=== PATIENT | male | born 1975 ===

== ENCOUNTER 2020-07-06 17:58 | Outpatient (REF) | payer OTHER, SELFPAY | END 2020-07-06 17:59 | disposition home or self-care (01) | LOC: HO.LNP 17:58 | PROVIDERS: Internal Medicine; Visit Provider Nurse Practitioner Family | DX: J06.9 Acute upper respiratory infection, unspecified (principal); Z20.828 Contact with and (suspected) exposure to other viral communicable diseases | CPT/HCPCS: U0003 ==

== ENCOUNTER 2021-05-10 14:55 | Outpatient (REF) | payer OTHER, SELFPAY | END 2021-05-10 14:56 | disposition home or self-care (01) | LOC: HO.LAB 14:55 | PROVIDERS: Visit Provider Internal Medicine | DX: Z20.822 Contact with and (suspected) exposure to COVID-19 (principal) | CPT/HCPCS: C9803; U0003; U0005 ==

== ENCOUNTER 2022-06-27 08:55 | Outpatient (REF) | payer OTHER, SELFPAY ==
[2022-06-27 11:12] LABS: MANUAL DIFF FLAG NO
[2022-06-27 11:26] LABS: Basophils Percent Auto 0.7 % (0-2); Eosinophils Absolute Auto 0.1 X10*3/uL (0.0-0.4); Eosinophils Percent Auto 1.6 % (0-4); Hematocrit 48.6 % (42.0-52.0); Hemoglobin 15.6 g/dl (14.0-18.0); Imm Gran Abs Auto 0.02 X10*3/uL (0.00-0.03); Imm Gran Pct Auto 0.3 % (0.0-0.4); Lymphocytes Absolute Auto 2.1 X10*3/uL (1.2-4.9); Lymphocytes Percent Auto 34.3 % (20-40); Mean Corpuscular HGB Conc 32.1 g/dl (31.0-36.0); Mean Corpuscular Hemoglobin 27.4 pg (27.0-33.0); Mean Corpuscular Volume 85.4 fL (80.0-98.0); Mean Platelet Volume 11.3 fL (9.4-12.4); Monocytes Absolute Auto 0.4 X10*3/uL (0.1-1.2); Monocytes Percent Auto 5.7 % (2-11); Neutrophils Absolute Auto 3.5 x10*3/uL (2.0-8.3); Neutrophils Percent Auto 57.4 % (45-73); Platelet Count 280 X10*3/uL (160-400); Red Blood Count 5.69 X10*6/uL (4.60-5.80); Red Cell Distribution Width 12.7 % (11.0-16.0); White Blood Count 6.1 X10*3/uL (4.8-10.8)
[2022-06-27 11:32] LABS: Estimated Average Glucose 292 mg/dL; Hemoglobin A1c % 11.8 %
[2022-06-27 11:57] LABS: Alanine Aminotransferase 31 U/L (0-40); Albumin Level 4.3 g/dL (3.5-5.0); Alkaline Phosphatase 79 U/L (39-117); Anion Gap 12 (12-20); Aspartate Amino Transferase 14 U/L (5-37); Bilirubin Total 0.5 mg/dL (0.0-1.0); Blood Urea Nitrogen 20 mg/dL (9-16); Calcium 9.9 mg/dL (8.4-10.2); Carbon Dioxide 27 mmol/L (22-29); Chloride 104 mmol/L (96-108); Cholesterol 191 mg/dL; Estimated Glomerular Filt Rate > 60; Glucose Fasting 337 mg/dL (60-99); HDL Cholesterol 31 mg/dL; Potassium 4.9 mmol/L (3.3-5.1); Sodium 138 mmol/L (135-145); TSH reflex Free T4 0.99 uIU/mL (0.32-4.0); Total Protein 7.8 g/dL (6.5-8.0); Triglycerides 401 mg/dL
[2022-06-28 22:43] LABS: Follicle Stimulating Hormone 4.9 mIU/mL (1.6-8.0); Lutenizing Hormone 4.4 mIU/mL (1.5-9.3)
[2022-07-04 13:59] LABS: Testosterone, Free 132.3 pg/mL (35.0-155.0); Testosterone, Total 407 ng/dL (250-1100)
== END 2022-06-27 08:56 | disposition home or self-care (01) ==
LOC: HO.HMGCLDS 08:55
PROVIDERS: PCP Nurse Practitioner Family; Visit Provider Nurse Practitioner Family
DX: Z00.00 Encounter for general adult medical examination without abnormal findings (principal); E11.9 Type 2 diabetes mellitus without complications; N52.9 Male erectile dysfunction, unspecified; R68.82 Decreased libido
CPT/HCPCS: 36415; 80053; 80061; 83001; 83002; 83036; 84402; 84403; 84443; 85025

== ENCOUNTER → 2022-08-27 08:13 | Outpatient (BNVA) | payer OTHER, SELFPAY | PROVIDERS: PCP Nurse Practitioner Family; Visit Provider Physician Assistant | DX: Z13.89 Encounter for screening for other disorder (principal) ==

== ENCOUNTER 2022-12-26 11:51 | Day surgery (SDC) | payer OTHER, SELFPAY ==
--- NOTE | 2022-12-25 12:13 | HO.ANESPROP2 ---
HPI - Anesthesia Eval Consult details Narrative: 47yo M for Colonoscopy PMFSH Active Problems Active Problems: All Active Problems (Updated 10/16/22 @ 10:51 by Aura Morales MD) Thumb laceration (Acute) Dyslipidemia (Acute) Dermatitis (Acute) Erectile dysfunction (Acute) Low libido (Acute) Screening for colon cancer (Acute) Right otitis externa (Acute) Strain of left trapezius muscle (Acute) Irregular heart rhythm (Acute) Balanitis (Acute) Coccyx pain (Acute) Diabetes (Acute) Physical exam (Acute) Thoracic myofascial strain (Acute) Upper respiratory infection (Acute) Surgical History Surgical History History of appendectomy Hx of cholecystectomy Social History Social History Housing: House Patient Tobacco Use Status: Never used Tobacco e-Cigarette/Vaping Use: Never Used Second Hand Smoke Exposure: No service: No Current occupational status: employed Current occupation: [employer] Current occupational exposures/hazards: No Cognitive needs: No Hearing needs: No Vision needs: No Meds Allergies Allergy/AdvReac Type Severity Reaction Status Date / Time No Known Allergies Allergy Verified 10/16/22 09:57 Exam Exam Date and Time: December 25, 2022 1213 Assessment and Plan Assessment Anesthesia Assessment: Chart Reviewed
--- NOTE | 2022-12-26 12:26 | MHC.SHP ---
Pre-Procedural Eval Section A Date of Service: 12/26/22 Section B Chief Complaint: screening Relevant Family History (Specify if Yes): No Relevant Social History: None Present Medications: see Short Stay Collaborative assessment Medical History: Significant History (HTN, DM, cholesterol ) History of Previous Operations: Relevant previous surgery/procedure and date(s) (History of appendectomy Hx of cholecystectomy) Allergies: Allergies Allergy/AdvReac Type Severity Reaction Status Date / Time No Known Allergies Allergy Verified 10/16/22 09:57 Review of Systems Sugical H&P ROS: Negative: Constitution, Cardiovascular, Respiratory, Neurological, Psychiatric, Hem-Onc, Allergic/Immunologic, Gastrointestinal, Genitourinary, Musculoskeletal, Integumentary, Endocrine and Eyes/Ears/Nose/Throat Exam Surgical H&P Exam: Normal: HEENT, Normal: Heart, Normal: Lungs, Normal: Extremities, Normal: Abdomen, Normal: Skin and Normal: Neurological Plan Diagnosis/Plan: Unchanged I have reviewed the history and physical and performed a pertinent physical examination on my patient. No changes have occurred unless specified. Time Spent With Patient Time: Total time managing care of this patient today ____ minutes.
--- NOTE | 2022-12-26 12:27 | W.PM.OPN ---
Operative Note Operative Note Date of Service: 12/26/22 Narrative: Operative Information Procedure Description: Colonoscopy Indication: screening Anesthesia: MAC COLONOSCOPY Instrument: Olympus variable stiffness pediatric scope 190L Colonoscopy Monitoring: Vital signs and clinical assessment, continuous EKG monitoring, Pulse oximetry, Carbon Dioxide monitoring and blood pressure monitoring were done throughout the procedure. Colon withdrawal time was 4 minutes. Procedure: The patient was placed in the left lateral decubitis position and pre-procedure medications were administered. After a digital rectal examination of the ano-rectum, the video colonoscope was inserted into the rectum and advanced through the colon to the cecum/TI. The colonoscope was slowly withdrawn in a retrograde panoramic fashion and the colon mucosa was carefully examined including a retroflexed view of the rectum. Findings and interventions are described below. Procedure Difficulty: easy Findings: Terminal Ileum-unable to intubate Cecum: unabel to see Ascending Colon: normal Transverse Colon -normal Descending Colon:normal Sigmoid Colon: normal Rectum: Retroflexion with small internal hemorrhoids, grade I Anorectum - normal Colon preparation: [place] Bowel Preparation Scale Right colon; 0-1 Transverse colon: 1-2 Left colon; 2 (0 = Unprepared colon segment with mucosa not seen due to solid stool that cannot be cleared. 1 = Portion of mucosa of the colon segment seen, but other areas of the colon segment not well seen due to staining, residual stool and/or opaque liquid. 2 = Minor amount of residual staining, small fragments of stool and/or opaque liquid, but mucosa of colon segment seen well. 3 = Entire mucosa of colon segment seen well with no residual staining, small fragments of stool or opaque liquid) Impression and Post Procedure Diagnosis: poor prep internal hemorrhoids Plan: High fiber diet leaflet Avoid straining at stool, epsom salts and sitz bath, anusol supps or cream Repeat Colonoscopy in 6-12 months with prep compliance or earlier if clinically indicated Above findings were reviewed with the patient and relevant handouts were provided if indicated.
[2022-12-26 12:28] VITALS: BMI 31.9
--- NOTE | 2022-12-26 12:29 | P.CONAN_ITS ---
[facility] Active Problems Active Problems: All Active Problems (Updated 10/16/22 @ 10:51 by Aura Morales MD) Thumb laceration (Acute) Dyslipidemia (Acute) Dermatitis (Acute) Erectile dysfunction (Acute) Low libido (Acute) Screening for colon cancer (Acute) Right otitis externa (Acute) Strain of left trapezius muscle (Acute) Irregular heart rhythm (Acute) Balanitis (Acute) Coccyx pain (Acute) Diabetes (Acute) Physical exam (Acute) Thoracic myofascial strain (Acute) Upper respiratory infection (Acute) Past Medical History Functional capacity: independent ambulation Surgical History Surgical History History of appendectomy Hx of cholecystectomy Social History Social History Housing: House Patient Tobacco Use Status: Never used Tobacco e-Cigarette/Vaping Use: Never Used Second Hand Smoke Exposure: No Advance Directives: No Advance Directives Information Provided: Yes service: No Current occupational status: employed Current occupation: [employer] Current occupational exposures/hazards: No Cognitive needs: No Hearing needs: No Vision needs: No Meds Allergies Allergy/AdvReac Type Severity Reaction Status Date / Time No Known Allergies Allergy Verified 10/16/22 09:57 Active Medications: Current Medications Lactated Ringer's (Lr) 1,000 mls @ 100 mls/hr IVCONT .Q10H LUANA Exam Exam Date and Time: December 26, 2022 1229 Airway Mallampati Class: IV TM Dist: >3cm Neck ROM: Full Heart: RRR Lungs: CTA Assessment and Plan Final Anesthetic Review ASA Class: III Final Preanesthetic Review: Meds/Allgs Chart Reviewed, Consent Obtained/Reviewed and Anes Risks/Benef Reviewed Patient Risk: Intermediate Procedure Risk: Low Anesthetic Plan Anesthetic Plan: MAC: Disposition: Standard PACU
[2022-12-26] MEDS: Lactated Ringers 1,000 ML 100 ML IVCONT (12:41)
[2022-12-26 12:50] LABS: Glucose, Whole Blood 86 mg/dL (60-115)
[2022-12-26 12:51] VITALS: BP 115/66; PULSE 97; RESP 18; TEMP 36.8; O2SAT 99
[2022-12-26 14:00] VITALS: BP 108/61; PULSE 87; RESP 16; TEMP 36.3; O2SAT 98
[2022-12-26 14:15] VITALS: BP 117/71; PULSE 83; RESP 17; TEMP 36.9; O2SAT 99
== END 2022-12-26 15:10 | disposition home or self-care (01) ==
PROVIDERS: PCP Nurse Practitioner Family; Visit Provider Internal Medicine Gastroenterology
PROC: 0DJD8ZZ Inspection of Lower Intestinal Tract, Via Natural or Artificial Opening Endoscopic (ICD-10-PCS; CPT 45378; principal; 2022-12-26 13:40)
DX: Z12.11 Encounter for screening for malignant neoplasm of colon (principal); K64.0 First degree hemorrhoids; I10 Essential (primary) hypertension; E78.00 Pure hypercholesterolemia, unspecified; E11.9 Type 2 diabetes mellitus without complications; Z79.84 Long term (current) use of oral hypoglycemic drugs; Z79.899 Other long term (current) drug therapy; Z90.49 Acquired absence of other specified parts of digestive tract
CPT/HCPCS: 45378; 82947

== ENCOUNTER 2023-02-10 07:43 | Outpatient (REF) | payer OTHER, SELFPAY ==
[2023-02-10 11:24] LABS: MANUAL DIFF FLAG NO
[2023-02-10 11:51] LABS: Basophils Percent Auto 0.8 % (0-2); Eosinophils Absolute Auto 0.2 X10*3/uL (0.0-0.4); Eosinophils Percent Auto 3.3 % (0-4); Hemoglobin 14.9 g/dl (14.0-18.0); Imm Gran Abs Auto 0.01 X10*3/uL (0.00-0.03); Imm Gran Pct Auto 0.2 % (0.0-0.4); Lymphocytes Absolute Auto 1.9 X10*3/uL (1.2-4.9); Lymphocytes Percent Auto 36.7 % (20-40); Mean Corpuscular Hemoglobin 26.2 pg (27.0-33.0); Mean Corpuscular Volume 84.5 fL (80.0-98.0); Mean Platelet Volume 10.7 fL (9.4-12.4); Monocytes Absolute Auto 0.4 X10*3/uL (0.1-1.2); Monocytes Percent Auto 7.2 % (2-11); Neutrophils Absolute Auto 2.7 x10*3/uL (2.0-8.3); Neutrophils Percent Auto 51.8 % (45-73); Platelet Count 269 X10*3/uL (160-400); Red Blood Count 5.68 X10*6/uL (4.60-5.80); Red Cell Distribution Width 13.5 % (11.0-16.0); White Blood Count 5.2 X10*3/uL (4.8-10.8)
[2023-02-10 12:10] LABS: Estimated Average Glucose 151 mg/dL; Hemoglobin A1c % 6.9 %
[2023-02-10 12:27] LABS: Alanine Aminotransferase 44 U/L (0-40); Albumin Level 3.9 g/dL (3.5-5.0); Alkaline Phosphatase 51 U/L (39-117); Anion Gap 13 (12-20); Aspartate Amino Transferase 17 U/L (5-37); Bilirubin Total 0.5 mg/dL (0.0-1.0); Blood Urea Nitrogen 13 mg/dL (9-16); Calcium 8.5 mg/dL (8.4-10.2); Carbon Dioxide 24 mmol/L (22-29); Chloride 105 mmol/L (96-108); Cholesterol 139 mg/dL; Estimated Glomerular Filt Rate > 60; Glucose Fasting 146 mg/dL (60-99); Glucose Random 146 mg/dL (60-115); HDL Cholesterol 36 mg/dL; LDL Cholesterol Calculated 81 mg/dl; Potassium 3.9 mmol/L (3.3-5.1); Sodium 138 mmol/L (135-145); Total Protein 6.9 g/dL (6.5-8.0); Triglycerides 112 mg/dL
[2023-02-10 12:49] LABS: TSH reflex Free T4 0.71 uIU/mL (0.32-4.0)
[2023-02-10 14:50] LABS: Appearance Urine Clear; Color Urine Yellow; Glucose Urine UA 500 mg/dL (Negative); Leukocyte Esterase Urine Negative (Negative); Nitrite Urine Negative (Negative); Specific Gravity - Urine 1.025 (1.005-1.025); Urine Blood Negative (Negative); Urine Ketones Negative (Negative); Urine Protein Negative (Neg-Trace)
[2023-02-10 16:03] LABS: Creatinine Urine 176.11 mg/dL; Microalbum/Creatinine Ratio Ur 3.4 ug/mg cr
== END 2023-02-10 07:44 | disposition home or self-care (01) ==
LOC: HO.HMGCLDS 07:43
PROVIDERS: PCP Nurse Practitioner Family; Visit Provider Nurse Practitioner Family
DX: E11.9 Type 2 diabetes mellitus without complications (principal); E78.5 Hyperlipidemia, unspecified
CPT/HCPCS: 36415; 80053; 80061; 81003; 82043; 83036; 84443; 85025

== ENCOUNTER 2023-02-11 10:12 | Outpatient (AMB) | payer OTHER, SELFPAY ==
[2023-02-11 10:24] VITALS: BP 120/76; PULSE 84; O2SAT 98; BMI 32.0
--- NOTE | 2023-02-11 10:24 | MHC.PC.OV ---
Vital Signs 02/11/23 10:24 Height 5 ft 10 in Weight 223 lb 4 oz BMI 32.0 BP 120/76 Blood Pressure Location Lt brachial Position Sitting Pulse 84 Pulse Source Pulse Oximeter Pulse Oximetry (%) 98 Oxygen Delivery Method Room Air Intake Visit Reasons: Diabetes, labs Allergies No Known Allergies Allergy (Verified 02/11/23 10:26) Medication List - Last Reconciled 02/11/23 by JUAN Rock bisacodyl (Dulcolax (bisacodyl)) 10 mg (2 x 5 mg) PO ONCE 1 day clotrimazole-betamethasone 1-0.05 % 1 appl topical BID 2 weeks lisinopril 2.5 mg PO DAILY metformin 1,000 mg PO BID polyethylene glycol 3350 (Miralax) 238 grams PO ONCE 1 day rosuvastatin (Crestor) 10 mg PO BEDTIME 30 days tadalafil (Cialis) 5 mg PO DAILY PRN 10 days tirzepatide 7.5 mg (0.5 mL) subcut QWEEK 4 weeks Tobacco use date assessed: 02/11/23 Dental Screening Dental Screen Date: 02/11/23 Did you have a dental visit in the last 12 months?: No Did you have a dental problem in the last 6 months where you did not have access to dental care?: No Was dental information given to patient?: Patient has dentist HPI Diabetes, labs HPI Details Pt is a diabetic, on an RAMONITA and a statin. Last A1c was 6.9, microalbumin is up to date. Denies polyuria, polydipsia, does report neuropathy. Pt denies any signs and symptoms of hypoglycemia and does know how to correct it. Eye exam is up to date. Liver enzymes were elevated. Hepatitis screen and US have been ordered. [facility] Medical History (Updated 02/10/23 @ 12:38 by JUAN Rock) Diabetes mellitus Erectile dysfunction Hyperlipidemia Hypertension Surgical History History of appendectomy Hx of cholecystectomy Social History Housing: House Patient Tobacco Use Status: Never used Tobacco e-Cigarette/Vaping Use: Never Used Second Hand Smoke Exposure: No service: No Current occupational status: employed Current occupation: [employer] Current occupational exposures/hazards: No Cognitive needs: No Hearing needs: No Vision needs: No Questionnaire Thrive Questionnaire Date Thrive assessed: 06/27/22 MAYNOR-7 AMB Questionnaire MAYNOR-7 Date MAYNOR - 7 assessed: 06/27/22 Source: Developed by Drs. Jason Vergara, Qi Ferguson, Yared Solis and colleagues, with an educational charlotte from [employer]. Review of Systems Const Reports as per HPI Physical exam (Primary Care) Vital Signs: Last Vital Signs Pulse 84 02/11/23 10:24 BP 120/76 02/11/23 10:24 Pulse Ox 98 02/11/23 10:24 Oxygen Delivery Method Room Air 02/11/23 10:24 BMI result Body Mass Index 32.0 Tobacco/Smoking Status: Tobacco use Status Tobacco use date assessed 02/11/23 02/11/23 10:31 Patient Tobacco Use Status Never used Tobacco 02/11/23 10:27 e-Cigarette/Vaping Use Never Used 02/11/23 10:27 Thrive Assessment: Date of Thrive Assessment Date Thrive assessed 06/27/22 02/11/23 10:27 Const General: cooperative Nutritional Appearance: obese Orientation/consciousness: patient oriented x3 Resp Effort & Inspection: normal respiratory effort Auscultation: clear to auscultation bilaterally Cardio Rate: regular rate Rhythm: regular rhythm Heart sounds: S1 normal heart sound present and S2 normal heart sound present Neuro General: patient oriented x3 Extrem Other: bilat feet: + sensation with use of monofilament, feet intact Psych Appearance: grossly normal Mental Status: mental status grossly normal Speech and movement: Normal speech and movement present Affect: normal affect Attitude: cooperative Thought process: Normal thought process present Thought content: Normal thought content present Insight: Good insight present (Psych) Judgement: Good judgement present (Psych) Assessment and Plan Assessment & Plan (1) Elevated liver enzymes: Code(s): R74.8 - Abnormal levels of other serum enzymes (2) Diabetes: Code(s): E11.9 - Type 2 diabetes mellitus without complications Plan The patient agreed to the use of a certified medical technician assistant for this encounter. Scribed for JUAN Barron by Shyla Gold certified medical technician assistant, on 02/11/2023 at 10:35 EST. Medications: New tadalafil (Cialis) administer approximately 30min before sexual activity; do not use more than 1 dose per 24hrs 5 mg PO DAILY PRN 10 tabs 1RF sexual activity 10 days Refilled tirzepatide 7.5 mg (0.5 mL) subcut QWEEK 4 weeks 2 mL 0RF tirzepatide 7.5 mg (0.5 mL) subcut QWEEK 2 mL 0RF 4 weeks metformin 1,000 mg PO BID 180 tabs 0RF Coding Level of Care Code Est Pt Level 3 (70032) Diagnoses Elevated liver enzymes R74.8 Diabetes E11.9
== END 2023-02-11 10:59 | disposition home or self-care (01) ==
PROVIDERS: PCP Nurse Practitioner Family; Visit Provider Nurse Practitioner Family
DX: R74.8 Abnormal levels of other serum enzymes (principal); E11.9 Type 2 diabetes mellitus without complications
CPT/HCPCS: 99213

== ENCOUNTER 2023-02-27 09:02 | Outpatient (REF) | payer OTHER, SELFPAY ==
--- NOTE | ~2023-02-27 | US_ITS ---
EXAMINATION: US ABDOMEN COMPLETE CLINICAL INFORMATION: Abnormal levels of other serum enzymes. COMPARISON: None available. TECHNIQUE: Real-time imaging of the abdominal viscera. FINDINGS: PANCREAS: Normal. ABDOMINAL AORTA: The proximal, mid, and distal segments are normal in caliber. INFERIOR VENA CAVA: Visualized portions are normal. LIVER: The liver is normal in size. The liver contour is normal. There is diffuse increased liver parenchymal echogenicity. No focal hepatic lesion. There is no intrahepatic biliary duct dilatation seen. GALLBLADDER: Surgically absent. COMMON BILE DUCT: Normal in caliber measuring 0.32 cm in diameter. RIGHT KIDNEY: Normal. No hydronephrosis. No renal calculi or focal parenchymal lesions. The kidney measures 11.8 cm in maximum dimension. LEFT KIDNEY: Normal. No hydronephrosis. No renal calculi or focal parenchymal lesions. The kidney measures 12.4 cm in maximum dimension. SPLEEN: Normal. The spleen measures 9.5 cm in maximum dimension. FREE FLUID: None. US/US abdomen complete IMPRESSION: There is generalized increase in hepatic echotexture, consistent with fatty infiltration or hepatocellular disease. Please correlate clinically. No focal hepatic mass or intrahepatic biliary dilatation is seen.
[2023-02-27 12:15] LABS: HBS Num1 7.36 mIU/mL (0-7.99); HBc Num1 0.07 S/CO (0.00-0.79); HBsAGNum1 0.37 S/CO (0.00-0.99); Hepatitis A Antibody IgM 0.22 Index (0-0.79); Hepatitis B Core Antibody Nonreactive (Nonreactive); Hepatitis B Surface Antigen Negative (Negative); ~HepC Num1 0.06 S/CO (0.00-0.79); ~Hepatitis A Antibody IgM Nonreactive (Nonreactive); ~Hepatitis B Surface Antibody NONREACTIVE (Nonreactive); ~Hepatitis C Antibody Nonreactive (Nonreactive)
== END 2023-02-27 09:03 | disposition home or self-care (01) ==
LOC: HO.HMGCX 09:02
PROVIDERS: PCP Nurse Practitioner Family; Visit Provider Nurse Practitioner Family
DX: R74.8 Abnormal levels of other serum enzymes (principal)
CPT/HCPCS: 36415; 76700; 86704; 86706; 86709; 86803; 87340

== ENCOUNTER 2023-07-15 07:59 | Outpatient (AMB) | payer OTHER, SELFPAY ==
--- NOTE | 2023-07-15 08:09 | A.OFFPC_ITS ---
Vital Signs 07/15/23 08:11 Height 5 ft 10 in Weight 228 lb BMI 32.7 BP 118/80 Blood Pressure Location Rt brachial Position Sitting Pulse 92 Pulse Source Pulse Oximeter Pulse Oximetry (%) 99 Oxygen Delivery Method Room Air Intake Visit Reasons: Annual PE Intake Note: Patient here for physical exam. last colonoscopy: 2022 at [facility] Allergies No Known Allergies Allergy (Verified 07/15/23 08:22) Medication List - Last Reconciled 07/15/23 by JUAN Rock bisacodyl (Dulcolax (bisacodyl)) 10 mg (2 x 5 mg) PO ONCE 1 day clotrimazole-betamethasone 1-0.05 % 1 appl topical BID 2 weeks ibuprofen 800 mg PO Q8H lisinopril 2.5 mg PO DAILY metformin 1,000 mg PO BID polyethylene glycol 3350 (Miralax) 238 grams PO ONCE 1 day rosuvastatin (Crestor) 10 mg PO BEDTIME 30 days tadalafil (Cialis) 5 mg PO DAILY PRN 10 days tirzepatide 10 mg (0.5 mL) subcut QWEEK 4 weeks Tobacco use date assessed: 07/15/23 Dental Screening Dental Screen Date: 07/15/23 Did you have a dental visit in the last 12 months?: No Did you have a dental problem in the last 6 months where you did not have access to dental care?: No Was dental information given to patient?: Patient has dentist HPI Annual PE HPI Details Pt is here for a PE. Will order labs. Due for colon screen in December, will place referral. Pt is a diabetic, on an RAMONITA and a statin. A1C in office today is 7.8. Microalbumin is up to date. Denies polyuria, polydipsia, does report neuropathy. Pt denies any signs and symptoms of hypoglycemia and does know how to correct it. Pt reports that his blood sugar has been in the low 100s. Will increase mounjaro from 10mg to 15mg due to A1C. Eye exam is up to date. [facility] Medical History Fatty liver Erectile dysfunction Hyperlipidemia Diabetes mellitus Hypertension Surgical History History of appendectomy Hx of cholecystectomy Social History Housing: House Patient Tobacco Use Status: Never used Tobacco e-Cigarette/Vaping Use: Never Used Second Hand Smoke Exposure: No service: No Current occupational status: employed Current occupation: [employer] Current occupational exposures/hazards: No Cognitive needs: No Hearing needs: No Vision needs: Yes Questionnaire PHQ-9 Over the last 2 weeks, how often have you been bothered by any of the following problems? 65071 - PHQ-9 Billing: Patient declined-do not bill Source: Developed by Drs. Jason Vergara, Qi Ferguson, Yared Solis and colleagues, with an educational charlotte from [employer]. Thrive Questionnaire Date Thrive assessed: 07/15/23 What is your living situation today?: I choose not to answer this question Within the past 12 months, did the food you bought not last and you didn't have the money to get more?: I choose not to answer this question Within the past 12 months, did you worry whether your food would run out before you got money to buy more?: I choose not to answer this question Do you have trouble paying for medicines?: I choose not to answer this question Do you have trouble getting transportation to medical appointments?: I choose not to answer this question Do you have trouble paying your heating and electricity bill?: I choose not to answer this question Do you have trouble taking care of your child, family member or friend?: I choose not to answer this question Do you have trouble with day-to-day activities such as bathing, preparing meals, shopping, managing finances, etc.?: I choose not to answer this question Are you currently unemployed and looking for a job?: I choose not to answer this question Are you interested in more education?: I choose not to answer this question Currently or been in a relationship where the following occur: I choose not to answer this question AUDIT C Alcohol Use Questionnaire (AUDIT-C) 1. How often do you have a drink containing alcohol?: Monthly or less 2. How many drinks containing alcohol do you have on a typical day when you are drinking?: 1 or 2 3. How often do you have six or more drinks on one occasion?: Never Total Score: 1 Score Reviewed/Action Taken: No MAYNOR-7 AMB Questionnaire MAYNOR-7 Date MAYNOR - 7 assessed: 07/15/23 Source: Developed by Drs. Jason Vergara, Qi Ferguson, Yared Solis and colleagues, with an educational charlotte from [employer]. MAYNOR-7 Assessment Billing MAYNOR-7 Assessment Tool: pt declined-do not bill Review of Systems Const Denies chills and Denies fever(s) Eyes Denies blurry vision ENT Denies vertigo, Denies dizziness and Denies sore throat Card Denies chest pain at rest, Denies chest pain with activity, Denies diaphoresis, Denies dyspnea and Denies dyspnea on exertion Resp Denies cough, Denies dyspnea, Denies dyspnea on exertion and Denies wheezing GI Denies abdominal pain, Denies melena, Denies hematochezia, Denies constipation, Denies diarrhea and Denies loose stools Denies hematuria Musc Denies numbness and Denies tingling Skin/Breast Denies lesions Neuro Denies vertigo, Denies dizziness, Denies numbness and Denies tingling Psych Denies anxiety, Denies depression, Denies homicidal ideation, Denies suicidal i deation and Denies other (substance abuse) Aller/Immun Denies wheezing Physical exam (Primary Care) Vital Signs: Last Vital Signs Pulse 92 07/15/23 08:11 BP 118/80 07/15/23 08:11 Pulse Ox 99 07/15/23 08:11 Oxygen Delivery Method Room Air 07/15/23 08:11 BMI result Body Mass Index 32.7 Tobacco/Smoking Status: Tobacco use Status Tobacco use date assessed 07/15/23 07/15/23 08:17 Patient Tobacco Use Status Never used Tobacco 07/15/23 08:10 e-Cigarette/Vaping Use Never Used 07/15/23 08:10 Thrive Assessment: Date of Thrive Assessment Date Thrive assessed 07/15/23 07/15/23 08:20 Currently or been in a relationship where the following occur: I choose not to answer this question Const General: cooperative Nutritional Appearance: obese Orientation/consciousness: patient oriented x3 HENMT Head: Yes normal to inspection, Yes normocephalic and Yes atraumatic Ears: TM's normal bilaterally Eyes General: appearance normal, both eyes and all related structures Alignment and Position: alignment normal and position normal Neck Neck: Yes normal visual inspection and Yes no lymphadenopathy Thyroid: Thyroid normal Resp Effort & Inspection: normal respiratory effort Auscultation: clear to auscultation bilaterally Cardio Rate: regular rate Rhythm: regular rhythm Heart sounds: S1 normal heart sound present, S2 normal heart sound present and no murmurs GI Palpation (GI): Soft to palpation and nontender Auscultation: normal bowel sounds Male General Exam: Yes normal external exam Penis: normal penis Scrotum: scrotum normal, testes descended bilaterally and no inguinal hernias Testes: no testicular mass Skin Rashes: no rashes Neuro General: patient oriented x3, moves all extremities, no focal motor deficits and deep tendon reflexes 2+ bilaterally Romberg Test: Negative Extrem Other: bilat feet: + sensation with use of monofilament, feet intact Psych Appearance: grossly normal Mental Status: mental status grossly normal Speech and movement: Normal speech and movement present Affect: normal affect Attitude: cooperative Thought process: Normal thought process present Thought content: Normal thought content present Insight: Good insight present (Psych) Judgement: Good judgement present (Psych) Results AMB Hemoglobin A1c AMB Hemoglobin A1c 7.8 % Last Edit by ROB Harrison on 07/15/23 08 :34 Assessment and Plan Assessment & Plan (1) Physical exam: Code(s): Z00.00 - Encounter for general adult medical examination without abnormal findings Plan: Labs ordered (2) Screening for colon cancer: Comment: Index screening colonoscopy MiraLax Gatorade split prep Medications just Code(s): Z12.11 - Encounter for screening for malignant neoplasm of colon Plan: Referred to GI (3) Diabetes: Code(s): E11.9 - Type 2 diabetes mellitus without complications Plan: increased GLP-1 agonist Plan The patient agreed to the use of a medical billing assistant for this encounter. Scribed for JUAN Barron by Shyla Gold medical billing assistant, on 07/15/2023 at 08:20 EST. Orders: Orders Complete Blood Count Auto Diff Today Z00.00 - Encounter for general adult medical examination without abnormal findings Comprehensive [place]. Panel Fast Today Z00.00 - Encounter for general adult medical examination without abnormal findings TSH reflex Free T4 Today Z00.00 - Encounter for general adult medical examination without abnormal findings UA CC w/rflx Micro + Cult Today Z00.00 - Encounter for general adult medical examination without abnormal findings Lipid Panel Today Z00.00 - Encounter for general adult medical examination without abnormal findings AMB Hemoglobin A1c Today E11.9 - Type 2 diabetes mellitus without complications Referrals Gastroenterology Referral Z12.11 - Encounter for screening for malignant neoplasm of colon Medications: Changed From tirzepatide 10 mg (0.5 mL) subcut QWEEK 4 weeks 2 mL 4RF E11.9 - Type 2 diabetes mellitus without complications To tirzepatide 15 mg (0.5 mL) subcut QWEEK 4 weeks 2 mL 4RF E11.9 - Type 2 diabetes mellitus without complications Coding Level of Care Code Est Pt Prev Care 40-64y(09601) Diagnoses Physical exam Z00.00 Screening for colon cancer Z12.11 Diabetes E11.9
[2023-07-15 08:11] VITALS: BP 118/80; PULSE 92; O2SAT 99; BMI 32.7
== END 2023-07-15 09:44 | disposition home or self-care (01) ==
PROVIDERS: PCP Nurse Practitioner Family; Visit Provider Nurse Practitioner Family
DX: Z00.00 Encounter for general adult medical examination without abnormal findings (principal); Z12.11 Encounter for screening for malignant neoplasm of colon; E11.9 Type 2 diabetes mellitus without complications
CPT/HCPCS: 83036; 99396

== ENCOUNTER 2023-10-28 07:45 | Outpatient (REF) | payer OTHER, SELFPAY ==
[2023-10-28 10:26] LABS: MANUAL DIFF FLAG NO
[2023-10-28 10:40] LABS: Appearance Urine Clear; Color Urine Yellow; Glucose Urine UA 250 mg/dL (Negative); Leukocyte Esterase Urine Negative (Negative); Nitrite Urine Negative (Negative); PH 5.5 (5.0-9.0); Specific Gravity - Urine >= 1.030 (1.005-1.025); Urine Blood Negative (Negative); Urine Ketones Negative (Negative); Urine Protein Negative (Neg-Trace)
[2023-10-28 10:45] LABS: Basophils Percent Auto 0.7 % (0-2); Eosinophils Absolute Auto 0.1 X10*3/uL (0.0-0.4); Eosinophils Percent Auto 2.6 % (0-4); Hematocrit 48.4 % (42.0-52.0); Hemoglobin 15.5 g/dl (14.0-18.0); Imm Gran Abs Auto 0.01 X10*3/uL (0.00-0.03); Imm Gran Pct Auto 0.2 % (0.0-0.4); Lymphocytes Percent Auto 36.2 % (20-40); Mean Corpuscular Volume 84.3 fL (80.0-98.0); Monocytes Absolute Auto 0.4 X10*3/uL (0.1-1.2); Monocytes Percent Auto 6.9 % (2-11); Neutrophils Absolute Auto 2.9 x10*3/uL (2.0-8.3); Neutrophils Percent Auto 53.4 % (45-73); Platelet Count 259 X10*3/uL (160-400); Red Blood Count 5.74 X10*6/uL (4.60-5.80); Red Cell Distribution Width 13.3 % (11.0-16.0); White Blood Count 5.4 X10*3/uL (4.8-10.8)
[2023-10-28 11:55] LABS: Alanine Aminotransferase 47 U/L (0-40); Albumin Level 4.2 g/dL (3.5-5.0); Alkaline Phosphatase 72 U/L (39-117); Anion Gap 9 (12-20); Aspartate Amino Transferase 20 U/L (5-37); Bilirubin Total 0.6 mg/dL (0.0-1.0); Blood Urea Nitrogen 18 mg/dL (9-16); Calcium 9.1 mg/dL (8.4-10.2); Carbon Dioxide 27 mmol/L (22-29); Chloride 106 mmol/L (96-108); Cholesterol 152 mg/dL (<200); Estimated Glomerular Filt Rate > 60; Glucose Fasting 197 mg/dL (60-99); HDL Cholesterol 33 mg/dL (>40); LDL Cholesterol Calculated 85 mg/dL (<100); Potassium 4.2 mmol/L (3.3-5.1); Sodium 138 mmol/L (135-145); Total Protein 7.6 g/dL (6.5-8.0); Triglycerides 174 mg/dL (<150)
[2023-10-28 12:13] LABS: TSH reflex Free T4 1.14 uIU/mL (0.32-4.0)
== END 2023-10-28 07:46 | disposition home or self-care (01) ==
LOC: HO.HMGCLDS 07:45
PROVIDERS: PCP Nurse Practitioner Family; Visit Provider Nurse Practitioner Family
DX: Z00.00 Encounter for general adult medical examination without abnormal findings (principal); Z13.6 Encounter for screening for cardiovascular disorders
CPT/HCPCS: 36415; 80053; 80061; 81003; 84443; 85025

== ENCOUNTER 2023-10-29 09:29 | Outpatient (AMB) | payer OTHER, SELFPAY ==
--- NOTE | 2023-10-29 09:37 | A.OFFPC_ITS ---
Vital Signs 10/29/23 09:42 Height 5 ft 10 in Weight 224 lb BMI 32.1 BP 124/80 Blood Pressure Location Rt brachial Position Sitting Pulse 85 Pulse Source Pulse Oximeter Pulse Oximetry (%) 95 Oxygen Delivery Method Room Air Intake Visit Reasons: 3 month follow up Intake Note: Patient here for diabetes f/u. Allergies No Known Allergies Allergy (Verified 10/29/23 09:49) Medication List - Last Reconciled 10/29/23 by JUAN Rock bisacodyl (Dulcolax (bisacodyl)) 10 mg (2 x 5 mg) PO ONCE 1 day clotrimazole-betamethasone 1-0.05 % 1 appl topical BID 2 weeks ibuprofen 800 mg PO Q8H lisinopril 2.5 mg PO DAILY metformin 1,000 mg PO BID polyethylene glycol 3350 (Miralax) 238 grams PO ONCE 1 day rosuvastatin (Crestor) 10 mg PO BEDTIME 30 days tadalafil (Cialis) 5 mg PO DAILY PRN 10 days tirzepatide (Mounjaro) 10 mg subcut QWEEK tirzepatide 15 mg (0.5 mL) subcut QWEEK 4 weeks Tobacco use date assessed: 07/15/23 Dental Screening Dental Screen Date: 07/15/23 HPI 3 month follow up HPI Details Pt is a diabetic, on an RAMONITA and a statin. A1C in office today is 7.9. Microalbumin is up to date. Denies polyuria, polydipsia, and neuropathy. Pt denies any signs and symptoms of hypoglycemia and does know how to correct it. Will start tresiba 5 units. Pt knows that he can increase this by 2 units approximately every 5 days until his am fasting blood sugar is between 90-130. [facility] Medical History (Updated 10/29/23 @ 09:53 by JUAN Rock) Migraines Fatty liver Erectile dysfunction Hyperlipidemia Diabetes mellitus Hypertension Surgical History History of appendectomy Hx of cholecystectomy Social History Housing: House Patient Tobacco Use Status: Never used Tobacco e-Cigarette/Vaping Use: Never Used Second Hand Smoke Exposure: No service: No Current occupational status: employed Current occupation: [employer] Current occupational exposures/hazards: No Cognitive needs: No Hearing needs: No Vision needs: Yes Questionnaire Thrive Questionnaire Date Thrive assessed: 07/15/23 I am a: Patient What is your living situation today?: I choose not to answer this question Within the past 12 months, did the food you bought not last and you didn't have the money to get more?: I choose not to answer this question Within the past 12 months, did you worry whether your food would run out before you got money to buy more?: I choose not to answer this question THRIVE Score: 0 AUDIT C Alcohol Use Questionnaire (AUDIT-C) 1. How often do you have a drink containing alcohol?: Monthly or less 2. How many drinks containing alcohol do you have on a typical day when you are drinking?: 1 or 2 3. How often do you have six or more drinks on one occasion?: Never Total Score: 1 MAYNOR-7 AMB Questionnaire MAYNOR-7 Date MAYNOR - 7 assessed: 07/15/23 Feeling nervous, anxious, or on edge: 0 = Not at all Not being able to stop or control worryin = Not at all Worrying too much about different things: 0 = Not at all Trouble relaxin = Several days Being so restless that it is hard to sit still: 0 = Not at all Becoming easily annoyed or irritable: 0 = Not at all Feeling afraid as if something awful might happen: 0 = Not at all Total MAYNOR-7 score (0-4 normal; 5-9 mild; 10-14 moderate; 15-21 severe): 1 Source: Developed by Drs. Jason Vergara, Qi Ferguson, Yared Solis and colleagues, with an educational charlotte from [employer]. Review of Systems Const Reports as per HPI Physical exam (Primary Care) Vital Signs: Last Vital Signs Pulse 85 10/29/23 09:42 BP 124/80 10/29/23 09:42 Pulse Ox 95 10/29/23 09:42 Oxygen Delivery Method Room Air 10/29/23 09:42 BMI result Body Mass Index 32.1 Tobacco/Smoking Status: Tobacco use Status Tobacco use date assessed 07/15/23 10/29/23 09:38 Patient Tobacco Use Status Never used Tobacco 10/29/23 09:38 e-Cigarette/Vaping Use Never Used 10/29/23 09:38 Thrive Assessment: Date of Thrive Assessment Date Thrive assessed 07/15/23 10/29/23 09:38 Const General: cooperative Nutritional Appearance: obese Orientation/consciousness: patient oriented x3 Resp Effort & Inspection: normal respiratory effort Auscultation: clear to auscultation bilaterally Cardio Rate: regular rate Rhythm: regular rhythm Heart sounds: S1 normal heart sound present and S2 normal heart sound present Neuro General: patient oriented x3 Extrem Other: bilat feet: + sensation with use of monofilament, feet intact Psych Appearance: grossly normal Mental Status: mental status grossly normal Speech and movement: Normal speech and movement present Affect: normal affect Attitude: cooperative Thought process: Normal thought process present Thought content: Normal thought content present Insight: Good insight present (Psych) Judgement: Good judgement present (Psych) Results AMB Hemoglobin A1c AMB Hemoglobin A1c 7.9 % Last Edit by ROB Harrison on 10/29/23 10 :17 Results Reviewed Results Reviewed: Laboratory Last Values Hgb A1c (Clinic) 7.9 % (4.0-6.0) H 10/29/23 10:16 Assessment and Plan Assessment & Plan (1) Diabetes: Code(s): E11.9 - Type 2 diabetes mellitus without complications Plan The patient agreed to the use of a auditor medical claims for this encounter. Scribed for JUAN Barron by Shyla Gold auditor medical claims, on 10/29/2023 at 09:50 EST. Orders: Orders AMB Hemoglobin A1c Today Z13.9 - Encounter for screening, unspecified Medications: New insulin degludec (Tresiba FlexTouch U-100 insulin) 5 units (0.05 mL) subcut BEDTIME 1.5 mL 0RF 30 days Coding Level of Care Code Est Pt Level 3 (92616) Diagnoses Diabetes E11.9
[2023-10-29 09:42] VITALS: BP 124/80; PULSE 85; O2SAT 95; BMI 32.1
== END 2023-10-29 10:21 | disposition home or self-care (01) ==
PROVIDERS: PCP Nurse Practitioner Family; Visit Provider Nurse Practitioner Family
DX: E11.9 Type 2 diabetes mellitus without complications (principal)
CPT/HCPCS: 83036; 99213

== ENCOUNTER 2025-04-05 08:31 | Outpatient (AMB) | payer OTHER, SELFPAY ==
[2025-04-05 08:33] VITALS: BP 124/74; PULSE 92; RESP 16; TEMP 36.8; O2SAT 99; BMI 31.4
--- NOTE | 2025-04-05 08:33 | MHC.PC.OV ---
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- clotrimazole-betamethasone 1-0.05 % 1 appl topical BID 2 weeks ibuprofen 800 mg PO Q8H insulin degludec (Tresiba FlexTouch U-100 insulin) 5 units (0.05 mL) subcut BEDTIME 30 days lisinopril 2.5 mg PO DAILY metformin 1,000 mg PO BID rosuvastatin (Crestor) 10 mg PO BEDTIME 30 days tadalafil (Cialis) 5 mg PO DAILY PRN 10 days tirzepatide (Mounjaro) 15 mg (0.5 mL) subcut QWEEK tirzepatide 12.5 mg (0.5 mL) subcut QWEEK 30 days Tobacco use date assessed: 04/05/25 Dental Screening Dental Screen Date: 04/05/25 Did you have a dental visit in the last 12 months?: Yes Did you have a dental problem in the last 6 months where you did not have access to dental care?: No Was dental information given to patient?: Patient has dentist HPI follow up DM HPI Details Chief Complaint The patient presents for follow-up care for diabetes management. History of Present Illness The patient is a 49-year-old male presenting with diabetes management. He has been without his diabetes medications for approximately three months, resulting in an elevated hemoglobin A1c of 11.2%. The patient reports experiencing polydipsia but denies polyuria and neuropathy. The patient has a history of onychomycosis affecting the bilateral big toenails. He is aware of the signs and symptoms of balanitis due to his uncircumcised status and has been provided with cream for treatment (starting farxiga, pt declines insulin at this time) The patient is due for laboratory tests and plans to complete them before the next visit. His eye examination is up to date, and he denies any blurred vision, chest pain, fevers, chills, or shortness of breath. Social History Health Maintenance - Eye examination is up to date Review of Systems - General: Denies fevers, chills - Endocrine: Reports polydipsia, denies polyuria - Neurological: Denies neuropathy - Respiratory: Denies shortness of breath - Cardiovascular: Denies chest pain - Ophthalmologic: Denies blurred vision Physical Exam General: Cooperative, healthy appearing, comfortable, no acute distress and well developed Orientation: Patient oriented x3 Limitations: No limitations Head: Normal to inspection Ears: Hearing grossly normal bilaterally Nose: Normal external nose present Face and sinus: Normal facial exam Eyes: Appearance normal, both eyes and all related structures Neck: Normal visual inspection and Yes full ROM Respiratory: Normal respiratory effort and able to speak in complete sentences. Clear to auscultation bilaterally Cardiovascular: Regular rate and rhythm. Normal S1 and S2 GI: Normal to inspection. Soft to palpation and nontender Skin: No rashes or lesions noted Neuro: Patient oriented x3 Extremities: Onychomycosis noted to bilaterally big toenails. Otherwise, normal to inspection, + sensation with use of monofilament Results - Labs: Hemoglobin A1c 11.2% Plan 1. Diabetes Mellitus The patient has been without diabetes medications for three months, resulting in an elevated hemoglobin A1c of 11.2%. We will restart his medications, including metformin and Mounjaro, and introduce Farxiga. The patient is aware of the signs of balanitis due to his uncircumcised status and has been provided with cream for treatment. He is due for laboratory tests before the next visit, and a follow-up is scheduled in four months to assess improvement in A1c levels. 2. Onychomycosis Onychomycosis was noted on the bilateral big toenails during the examination. Discussion Notes I discussed with the patient the need to restart his diabetes medications, including metformin and Mounjaro, and the addition of Farxiga to his regimen. I explained the signs and symptoms of balanitis due to his uncircumcised status and provided cream for treatment. We agreed on a follow-up in four months to reassess his A1c levels and overall diabetes management. Patient Instructions - Restart diabetes medications as prescribed, including metformin, Mounjaro, and Farxiga. - Be aware of the signs of balanitis and use the provided cream if symptoms occur. - Complete laboratory tests before the next visit. - Follow up in four months to reassess diabetes management. [facility] Medical History Migraines Fatty liver Erectile dysfunction Hyperlipidemia Diabetes mellitus Hypertension Surgical History History of appendectomy Hx of cholecystectomy Social History Housing: House Patient Tobacco Use Status: Never used Tobacco e-Cigarette/Vaping Use: Never Used Second Hand Smoke Exposure: No service: No Current occupational status: employed Current occupation: [employer] Current occupational exposures/hazards: No Cognitive needs: No Hearing needs: No Vision needs: Yes Questionnaire PHQ-9 Over the last 2 weeks, how often have you been bothered by any of the following problems? 1. Little interest or pleasure in doing things: not at all 2. Feeling down, depressed, or hopeless: not at all 3. Trouble falling or staying asleep, or sleeping too much: not at all 4. Feeling tired or having little energy: not at all 5. Poor appetite or overeating: not at all 6. Feeling bad about yourself - or that you are a failure or have let yourself or your family down: not at all 7. Trouble concentrating on things, such as reading the newspaper or watching television: not at all 8. Moving or speaking so slowly that other people could have noticed. Or the opposite - being so fidgety or restless that you have been moving around a lot more than usual: not at all 9. Thoughts that you would be better off or of hurting yourself in some way: not at all Total score: 0 Depression Screening Interpretation: Negative Depression Screening Done: Yes 30897 - PHQ-9 Billing: Patient declined-do not bill Source: Developed by Drs. Jason Vergara, Qi Ferguson, Yared Solis and colleagues, with an educational charlotte from [employer]. Thrive Questionnaire Date Thrive assessed: 07/15/23 MAYNOR-7 AMB Questionnaire MAYNOR-7 Date MAYNOR - 7 assessed: 04/05/25 Feeling nervous, anxious, or on edge: 0 = Not at all Not being able to stop or control worryin = Not at all Worrying too much about different things: 0 = Not at all Trouble relaxin = Not at all Being so restless that it is hard to sit still: 0 = Not at all Becoming easily annoyed or irritable: 0 = Not at all Feeling afraid as if something awful might happen: 0 = Not at all Total MAYNOR-7 score (0-4 normal; 5-9 mild; 10-14 moderate; 15-21 severe): 0 Source: Developed by Drs. Jason Vergara, Qi Ferguson, Yared Solis and colleagues, with an educational charlotte from [employer]. MAYNOR-7 Assessment Billing MAYNOR-7 Assessment Tool: MAYNOR-7 Assessment 01897 Physical exam (Primary Care) Vital Signs: Last Vital Signs Temp 98.2 F 04/05/25 08:33 Pulse 92 04/05/25 08:33 Resp 16 04/05/25 08:33 BP 124/74 04/05/25 08:33 Pulse Ox 99 04/05/25 08:33 Oxygen Delivery Method Room Air 04/05/25 08:33 BMI result Body Mass Index 31.4 Tobacco/Smoking Status: Tobacco use Status Tobacco use date assessed 04/05/25 04/05/25 08:44 Patient Tobacco Use Status Never used Tobacco 04/05/25 08:35 e-Cigarette/Vaping Use Never Used 04/05/25 08:35 PHQ-9: PHQ-9 Score PHQ-9: Total score 0 04/05/25 08:44 Depression Screening Interpretation: Negative Thrive Assessment: Date of Thrive Assessment Date Thrive assessed 07/15/23 04/05/25 08:35 Immunizations pneumoc 20-lindsay conj-dip cr(PF) 0.5 mL IM syringe Performing Provider: JUAN Rock Performing Location: [facility] Administered by: Alcides Barrera CMA on 04/05/25 09:08 Dose Route Admin Location Dispensed Lot Number Expiration Date [facility] Drawbridge Operator 0.5 mL IM Right Deltoid 0.5 mL [id number] 12/24/25 [id number] [email or web address] Total Dispensed Waste 0.5 mL 0 % VIS Given Date VIS Provided VIS Publication Date 04/05/25 Single Vaccine 24 Eligibility Eligibility Date Funding Source Not VFC Eligible 04/05/25 Private Coding Level of Care Code Est Pt Level 3 (03232) Diagnoses Screening for colon cancer Z12.11 Diabetes E11.9 Additional Codes MAYNOR-7 Assessment Billing - MAYNOR-7 Assessment Tool: MAYNOR-7 Assessment 41686 ([id number]) Assessment & Plan Assessment & Plan (1) Screening for colon cancer: Comment: Index screening colonoscopy MiraLax Gatorade split prep Medications just Code(s): Z12.11 - Encounter for screening for malignant neoplasm of colon Category: Medical (2) Diabetes: Code(s): E11.9 - Type 2 diabetes mellitus without complications Category: Medical Plan . Orders: Orders Pneumococcal 20 Immunization Today Z23 - Encounter for immunization Referrals Gastroenterology Referral Z12.11 - Encounter for screening for malignant neoplasm of colon Medications: New dapagliflozin propanediol (Farxiga) 5 mg PO DAILY 30 tabs 2RF 30 days clotrimazole-betamethasone 1-0.05 % 1 appl topical BID 45 grams 0RF 2 weeks Changed From ibuprofen 800 mg PO Q8H To ibuprofen please use sparingly due to diabetes 800 mg PO Q8H PRN 90 tabs 0RF pain 30 days Refilled tadalafil (Cialis) administer approximately 30min before sexual activity; do not use more than 1 dose per 24hrs 5 mg PO DAILY PRN 10 tabs 5RF sexual activity 10 days Discontinued insulin degludec (Tresiba FlexTouch U-100 insulin) Discontinued Reason: No Longer Medically Relevant 5 units (0.05 mL) subcut BEDTIME 30 days 1.5 mL 0RF clotrimazole-betamethasone 1-0.05 % Discontinued Reason: Duplicate 1 appl topical BID 2 weeks 30 mL 0RF
--- OUTSIDE RECORDS SUMMARY | 2025-04-05 08:48 | XMS_ITS | Clinical Summary ---
Author Organization [facility] Address [address] [place], [place] [id number] Phone Care Team Providers Care Build And Deployment Engineer Name Role Phone Pcp, Unknown Primary Care Provider Unavailabl e Allergies No known active allergies Immunizations Immunization Administration Dates Next Due Tdap 10/15/2022(Deferred: Patient Ref used) Social History Tobacco Use Types Packs/Day Years Used Date Smoking Tobacco: Never Smokeless Tobacco: Never Tobacco Cessation:Counseling Given: Not Answered Alcohol Use Standard Drinks/Week Comments Yes 0 (1 standard drink = 0.6 oz pur e alcohol) Education Answer Date Recorded Are you interested in more education? Not on albin e 11/02/2022 Are you concerned about learning? Not on file 11/02/2022 No 11/02/2022 No 11/02/2022 Digital Access Answer Date Recorded No 12/03/2022 No 12/03/2022 Reliable internet access at home? Not on file 12/03/2022 Device with a working camera? Not on file Intimate Partner Violence Answer Date R ecorded Are you denied basic needs s uch as food, clothing, or medical care? No 10/15/2022 In the past 12 months have y ou been in a relationship with a person who hurts, threatens, or tries to control you? No 10/15/2022 Are you denied basic needs s uch as food, clothing, or medical care? No 10/15/2022 In the past 12 months have y ou been in a relationship with a person who hurts, threatens, or tries to control you? No 10/15/2022 Sex and Gender Information Value Date Recorded Sex Assigned at Male 10/15/2022 8:57 PM EDT Legal Sex Male 8:56 PM EDT Gender Identity Male 10/15/2022 8:57 PM EDT Sexual Orientation Straight 10/15/2022 8: 58 PM EDT Last Filed Vital Signs Vital Sign Reading Time Taken Comments Blood Pressure 139/89 10/15/2022 8:59 PM EDT Pulse 88 10/15/2022 8:59 PM EDT Temperature 36.1 C (97 F) 10/15/2022 8:59 PM EDT Respiratory Rate 18 10/15/2022 8:59 PM EDT Oxygen Saturation 98% 10/15/2022 8:59 PM EDT Inhaled Oxygen Concentration - - Weight 100.2 kg (221 lb) 10/15/2022 8:59 PM EDT Height 177.8 cm (5' 10 ) 10/15/2022 8:59 PM EDT Body Mass Index 31.71 10/15/2022 8:59 PM EDT Plan of Treatment Health Maintenance Due Date Last Done Comments Adult Td,Tdap Booster 1974 LIPID PANEL 1974 DEPRESSION SCREENING 1986 HEPATITIS C SCREENING 1992 HIV ONE-TIME SCREENING (18-6 5 YEARS) 1992 SMOKING STATUS SCREENING (On ce After 26 Yrs) 2000 SCREENING FOR DIABETES 2009 COLOGUARD 2019 COLONOSCOPY 2019 COLORECTAL CANCER SCREENING 2019 FIT TEST 2019 FOBT 2019 SIGMOIDOSCOPY 2019 VIRTUAL COLONOSCOPY 2019 PNEUMOCOCCAL VACCINES (50+ y ears) (1 of 1 - PCV) 2024 ZOSTER VACCINES (1 of 2) 2024 INFLUENZA VACCINE (#1) 2025 COVID-19 VACCINE (1 - 2023-2 5 season) 2025 HEPATITIS A VACCINES Aged Out No long er eligible based on patient's age to complete this topic HIB VACCINES Aged Out No longer eligi ble based on patient's age to complete this topic MENINGOCOCCAL VACCINES (ACWY) Aged Out No longer eligible based on patient's age to complete this topic MENINGOCOCCAL VACCINES (B) Aged Out N o longer eligible based on patient's age to complete this topic Medical Devices Not on file Insurance Remind PPO Remind PPO Remind PPO [place] [address] [place] [address] [place] [address] [place] [address] [employer] Care Teams Build And Deployment Engineer Relationship Specialty Start Date End Date Pcp, Unknown PCP - General 10/15/22 Additional Source Comments The information contained in this document represents components of the legal health record. It is not the complete legal health record.[facility]
--- OUTSIDE RECORDS SUMMARY | 2025-04-05 08:48 | XMS_ITS | Patient Health Record ---
Author Organization [facility] Address [address] [place] [address] Care Team Providers Care Studio Model Name Role Phone Leanne (RETIRED) Odell CHANDRA Primary Care Provide r Unavailable Gerardo Ferguson, Xavi Unavailable Reason For Referral No Information Medications Medication SIG (Take, Route, Frequency, Duration) Notes Start Date End Date Status PriLOSEC 07/07/2024 07/07/2024 Active Problems Problem Type SNOMED Code ICD Code Onset Dates Problem Status W/U Status Risk Notes Problem Esophageal reflux ([id number]) Esophageal reflux (530.81) Active confirmed Plan Of Treatment No Information Insurance Providers Payer Name Payer Address Payer Phone Subscriber Number Group Number Insured Name Patient Relationship to Insured Coverage Start Date Coverage End Date [facility] [address] [facility] [phone] [id number] LISA COLE Self - patient is the insured Medical (General) History Medical History History ICD Code Denies AK,DM,CVA,Lung disease,renal dise ase Surgical History Surgery Date(Month/Year) appendectomy cholecystectomy
== END 2025-04-05 09:25 | disposition home or self-care (01) ==
PROVIDERS: PCP Nurse Practitioner Family; Visit Provider Nurse Practitioner Family
DX: Z12.11 Encounter for screening for malignant neoplasm of colon (principal); E11.9 Type 2 diabetes mellitus without complications; Z13.9 Encounter for screening, unspecified; Z23 Encounter for immunization

== ENCOUNTER → 2025-04-05 08:31 | Outpatient (BNVA) | payer OTHER, SELFPAY | PROVIDERS: PCP Nurse Practitioner Family; Visit Provider Nurse Practitioner Family | DX: E11.9 Type 2 diabetes mellitus without complications (principal); B35.1 Tinea unguium; Z23 Encounter for immunization | CPT/HCPCS: 83036; 90471; 90677; 96127 ==